=== PATIENT | male | born 1960 | race Caucasian/White ===

== ENCOUNTER 2017-07-02 11:03 | Inpatient (IN) | payer MEDICAID ==
[~2017-07-02] VITALS: Ht 172.7 cm; Wt 101.6 kg
[~2017-07-02 11:03] MED LIST: ATOR20TA9 PO
[2017-07-02] MEDS ORDERED: LACTATED RINGERS 1,000 ML IV SCH (15:21)
[2017-07-02] MEDS ORDERED: HYDROmorphone 2 MG/ML, 1ML ONE (16:09)
[2017-07-02] MEDS ORDERED: MIDAZOLAM 1 MG/ML, 2ML ONE (16:09)
[2017-07-02] MEDS ORDERED: FENTANYL PF 250 MCG/5ML ONE ×2 (16:09→16:55)
[2017-07-02] MEDS ORDERED: CEFOTETAN 2 GM ONE (16:22)
[2017-07-02] MEDS ORDERED: ROCURONIUM 10MG/ML,5ML ONE (16:22)
[2017-07-02] MEDS ORDERED: PNEUMOCOCCAL 23 VACCINE IM-VACC ONE (16:30)
[2017-07-02] MEDS ORDERED: FLU VACC QS2017-18 (36MOS+) UP/PF 0.5 ML IM-VACC ONE (16:30)
[2017-07-02] MEDS ORDERED: PROMETHAZINE 25 MG/ML, 1ML IV PRN (17:30)
[2017-07-02] MEDS ORDERED: OXYcodone 5 MG/5 ML ORAL.SOL UDC PO PRN (17:30)
[2017-07-02] MEDS ORDERED: FENTANYL PF 100 MCG/2ML IV PRN (17:30)
[2017-07-02] MEDS ORDERED: HYDROmorphone 1 MG/ML, 1ML IV PRN (17:30)
[2017-07-02] MEDS ORDERED: MIDAZOLAM 1 MG/ML, 2ML IV PRN (17:30)
[2017-07-02] MEDS ORDERED: hydrALAzine 20 MG/ML, 1ML IV PRN (17:30)
[2017-07-02] MEDS ORDERED: ALBUTEROL SULFATE 2.5 MG/3 ML NPPB PRN (17:30)
[2017-07-02] MEDS ORDERED: MEPERIDINE/PF 25MG/0.5ML IVPush PRN (17:30)
[2017-07-02] MEDS ORDERED: METOPROLOL 1 MG/ML, 5ML IV PRN (17:30)
[2017-07-02] MEDS ORDERED: ACETAMINOPHEN 325 MG TABLET PO PRN ×2 (17:30→20:30)
[2017-07-02] MEDS ORDERED: CEFAZOLIN 1,000 MG ONE (17:55)
[2017-07-02] MEDS ORDERED: SUCCINYLCHOLINE 20 MG/ML, 10ML ONE (17:55)
[2017-07-02] MEDS ORDERED: GLYCOPYRROLATE 0.2MG/1ML, 5ML ONE (17:55)
[2017-07-02] MEDS ORDERED: PROPOFOL 10 MG/ML, 20ML ONE (17:55)
[2017-07-02] MEDS ORDERED: DEXAMETHASONE 4 MG/ML, 1ML ONE (17:55)
[2017-07-02] MEDS ORDERED: NEOSTIGMINE 1 MG/ML, 10ML ONE (17:55)
[2017-07-02] MEDS ORDERED: ONDANSETRON 2MG/ML, 2ML ONE (17:55)
[2017-07-02] MEDS ORDERED: ROCURONIUM 10 MG/ML ONE (17:55)
[2017-07-02] MEDS ORDERED: MEPERIDINE/PF 50 MG/ML ONE (18:42)
[2017-07-02 20:00] VITALS: BP_SYST 140
[2017-07-02] MEDS ORDERED: morphine SULFATE 10 MG/ML, 1ML IV PRN (20:00)
[2017-07-02] MEDS ORDERED: ONDANSETRON 2MG/ML, 2ML IVPush PRN (20:30)
[2017-07-02] MEDS ORDERED: ACETAMINOPHEN 650 MG SUPP PR PRN (20:30)
[2017-07-02] MEDS: KETOROLAC 30 MG/1 ML IVPush SCH (20:52)
[2017-07-02] MEDS: ATORVASTATIN 20 MG TABLET PO SCH (20:52)
[2017-07-02] MEDS: LACTATED RINGERS 1,000 ML IV SCH (20:53)
[2017-07-03 00:03] VITALS: BP 151/92
[2017-07-03] MEDS: KETOROLAC 30 MG/1 ML IVPush SCH ×4 (03:00→20:42)
[2017-07-03 03:44] VITALS: BP 136/77
[2017-07-03] MEDS: ENOXAPARIN 40 MG/0.4 ML SQ SCH (05:34)
[2017-07-03 06:08] LABS: HEMATOCRIT 47.3 % (39.2-51.8); HEMOGLOBIN 15.9 g/dL (13.7-18.0); WHITE BLOOD COUNT 19.1 x10^3/uL (3.4-10)
[2017-07-03 06:11] LABS: BLOOD UREA NITROGEN 17 mg/dL (7-18)
[2017-07-03] MEDS: ACETAMINOPHEN 500 MG TABLET PO SCH ×2 (09:43→17:44)
[2017-07-03] MEDS: DIAZEPAM 5 MG TABLET PO PRN ×3 (09:43→21:40)
[2017-07-03 09:50] VITALS: BP 147/81
[2017-07-03 13:58] VITALS: BP 103/74
[2017-07-03] MEDS: LACTATED RINGERS 1,000 ML IV SCH (17:44)
[2017-07-03 19:48] VITALS: BP 137/74
[2017-07-03] MEDS: ATORVASTATIN 20 MG TABLET PO SCH (20:42)
[2017-07-04 00:24] VITALS: BP 125/74
[2017-07-04] MEDS: KETOROLAC 30 MG/1 ML IVPush SCH ×3 (02:22→15:00)
[2017-07-04] MEDS: ACETAMINOPHEN 500 MG TABLET PO SCH ×3 (02:22→18:03)
[2017-07-04 05:52] LABS: HEMATOCRIT 42.8 % (39.2-51.8); HEMOGLOBIN 14.4 g/dL (13.7-18.0); WHITE BLOOD COUNT 17.4 x10^3/uL (3.4-10)
[2017-07-04 06:03] LABS: BLOOD UREA NITROGEN 11 mg/dL (7-18)
[2017-07-04] MEDS: LACTATED RINGERS 1,000 ML IV SCH (06:23)
[2017-07-04] MEDS: ENOXAPARIN 40 MG/0.4 ML SQ SCH (06:23)
[2017-07-04] MEDS: DIAZEPAM 5 MG TABLET PO PRN ×3 (07:38→20:26)
[2017-07-04 08:30] VITALS: BP 124/75
[2017-07-04] MEDS ORDERED: OXYcodone IR 5MG TABLET PO PRN (09:00)
[2017-07-04] MEDS ORDERED: LACTATED RINGERS 1,000 ML IV SCH (09:00)
[2017-07-04 15:02] VITALS: BP 129/72
[2017-07-04 20:24] VITALS: BP 132/79
[2017-07-04] MEDS: ATORVASTATIN 20 MG TABLET PO SCH (20:41)
[2017-07-05 02:17] VITALS: BP 135/81
[2017-07-05] MEDS: ACETAMINOPHEN 500 MG TABLET PO SCH ×2 (02:34→08:59)
[2017-07-05] MEDS: DIAZEPAM 5 MG TABLET PO PRN ×2 (02:34→08:59)
[2017-07-05 05:30] LABS: HEMOGLOBIN 14.7 g/dL (13.7-18.0); WHITE BLOOD COUNT 15.5 x10^3/uL (3.4-10)
[2017-07-05] MEDS: ENOXAPARIN 40 MG/0.4 ML SQ SCH (06:29)
[2017-07-05 06:56] VITALS: BP 133/79
[2017-07-05] MEDS ORDERED: OXYC-302 PO (08:49)
[2017-07-05] MEDS ORDERED: DIAZ5TAB PO (08:50)
[2017-07-05 10:26] VITALS: BP 128/82
== END 2017-07-05 11:53 | disposition home or self-care (01) | DRG 331 ==
LOC: ORIP 15:05 → EDSTATUS 17:30 → 4NOR 19:45 → DCLOUNGE 07-05 11:38
PROVIDERS: ADMIT Surgery; ATTEND Surgery
PROC: 0DTF0ZZ Resection of Right Large Intestine, Open Approach (ICD-10-PCS; principal; 2017-07-02 17:30)
DX: D12.3 Benign neoplasm of transverse colon (principal); E78.5 Hyperlipidemia, unspecified; Z83.3 Family history of diabetes mellitus; Z82.49 Family history of ischemic heart disease and other diseases of the circulatory system
CPT/HCPCS: 36415; 80048; 85025; 86850; 86900; 88309; J0690; J1100; J1170; J1650; J1885; J2175; J2250; J2270; J2405; J2704; J2710; J3010; J3490; J0330; J7120; S0074